=== PATIENT | female | born 1980 | race Caucasian/White ===

== ENCOUNTER 2017-10-11 20:39 | Emergency (ER) | payer MEDICAID ==
[~2017-10-11] VITALS: Ht 154.9 cm; Wt 88.1 kg
[~2017-10-11 20:39] MED LIST: AMOX500T2 PO; HYDR10SY11 PO; LEVO125T8 PO; OLME1TAB18 PO; P20 PO
[2017-10-11] MEDS ORDERED: KETOROLAC 30MG/ML VIAL IV STA (23:27)
[2017-10-11] MEDS ORDERED: SODIUM CHLORIDE 0.9% 1,000 ML IV ONE (23:27)
[2017-10-11 23:45] LABS: BASOPHILS % 0.4 % (0.0-2.0); EOSINOPHILS % 0.3 % (0.0-5.0); HEMATOCRIT. 38.4 % (36.0-48.0); HEMOGLOBIN. 13.1 g/dL (12.0-16.0); MEAN CORPUSCULAR HEMOGLOBIN 29.7 pg (28.0-32.0); MONOCYTES % 8.2 % (2.0-8.0); NEUTROPHILS % 75.1 % (40.0-76.0); PLATELET 351 x1000/uL (130-400); RED BLOOD CELL COUNT 4.41 mill/uL (4.2-5.4); RED CELL DISTRIBUTION WIDTH 12.7 % (11.6-14.6)
[2017-10-11 23:49] LABS: CHLORIDE 104 mEq/L (98-107); INR 1.1; PROTHROMBIN TIME 11.4 sec (9.4-11.6)
[2017-10-11 23:59] LABS: CLARITY URINE CLEAR (CLEAR); COLOR URINE YELLOW (YELLOW); KETONES URINE NEGATIVE (NEGATIVE); LEUKOCYTE ESTERASE URINE NEGATIVE (NEGATIVE); NITRITE URINE NEGATIVE (NEGATIVE); OCCULT BLOOD URINE NEGATIVE (NEGATIVE); PH URINE 5.5 (4.5-8.0); PROTEIN URINE NEGATIVE (NEGATIVE); SPECIFIC GRAVITY URINE 1.014 (1.005-1.030); UROBILINOGEN URINE 0.2 E.U./dL (0.2-1.0)
[2017-10-12 03:59] VITALS: BP 114/64
== END 2017-10-12 04:02 | disposition home or self-care (01) ==
LOC: ER 20:39
DX: K57.32 Diverticulitis of large intestine without perforation or abscess without bleeding (principal); I10 Essential (primary) hypertension; E03.9 Hypothyroidism, unspecified; Z98.51 Tubal ligation status
CPT/HCPCS: 36415; 74176; 80053; 81003; 81025; 85025; 85610; 96361; 96374; 99285; J1885; J7030

== ENCOUNTER 2022-02-08 19:58 | Emergency (ER) | payer MEDICAID ==
[~2022-02-08] VITALS: Ht 154.9 cm; Wt 89.0 kg
[~2022-02-08 19:58] MED LIST changes: -AMOX500T2 PO; -HYDR10SY11 PO; -P20 PO
[2022-02-08 20:16] VITALS: BP 193/133
== END 2022-02-08 21:00 | disposition left against medical advice (07) ==
LOC: ER 19:58
DX: Z53.21 Procedure and treatment not carried out due to patient leaving prior to being seen by health care provider (principal)
CPT/HCPCS: 82962

== ENCOUNTER 2022-03-22 07:14 | Emergency (ER) | payer MEDICAID ==
[~2022-03-22] VITALS: Ht 157.5 cm; Wt 88.0 kg
[2022-03-22] MEDS ORDERED: MORPHINE SULFATE 4 MG/ML CPJ (NOT FOR IM USE) IV STA (07:41)
[2022-03-22 08:14] LABS: BASOPHILS % 0.9 % (0.0-2.0); EOSINOPHILS % 2.5 % (0.0-5.0); HEMATOCRIT. 43.6 % (36.0-48.0); HEMOGLOBIN. 15.2 g/dL (12.0-16.0); LYMPHOCYTES % 25.9 % (20.0-50.0); MEAN CORPUSCULAR HEMOGLOBIN 30.4 pg (28.0-32.0); MEAN PLATELET VOLUME 7.5 fl (7.4-10.4); MONOCYTES % 4.7 % (2.0-8.0); PLATELET 377 x1000/uL (130-400); RED BLOOD CELL COUNT 5.01 mill/uL (4.2-5.4)
[2022-03-22 08:36] LABS: CHLORIDE 101 mEq/L (98-107)
[2022-03-22 12:45] VITALS: BP 209/136
== END 2022-03-22 13:07 | disposition home or self-care (01) ==
LOC: ER 07:36
DX: R07.89 Other chest pain (principal); I10 Essential (primary) hypertension; E11.9 Type 2 diabetes mellitus without complications; Z98.51 Tubal ligation status; Z86.39 Personal history of other endocrine, nutritional and metabolic disease
CPT/HCPCS: 36415; 71045; 80053; 83880; 84484; 85025; 93005; 96374; 99285; J2270

== ENCOUNTER 2023-12-16 07:04 | Emergency (ER) | payer MEDICAID ==
[~2023-12-16] VITALS: Ht 154.9 cm; Wt 88.0 kg
[2023-12-16 07:13] VITALS: BP 160/110; PULSE 74; RESP 18; TEMP 98.2; O2SAT 100
[2023-12-16] MEDS ORDERED: ACETAMINOPHEN 325MG TABLET PO STA (08:20)
[2023-12-16] MEDS ORDERED: SODIUM CHLORIDE 0.9% 1000ML BAG (SEPSIS BOLUS) IV ONE (08:30)
[2023-12-16] MEDS ORDERED: CEFTRIAXONE 1GM/50ML 50 ML IV ONE (08:30)
== END 2023-12-16 09:05 | disposition home or self-care (01) ==
LOC: ER 07:04
DX: R53.83 Other fatigue (principal); R51.9 Headache, unspecified; R11.0 Nausea; Z53.21 Procedure and treatment not carried out due to patient leaving prior to being seen by health care provider
CPT/HCPCS: 99281; 82962; J7030

== ENCOUNTER 2024-10-23 07:07 | Emergency (ER) | payer MEDICAID ==
[~2024-10-23] VITALS: Ht 154.9 cm; Wt 88.4 kg
[~2024-10-23 07:07] MED LIST changes: +AMLO10TA80 MT; +EMPA25TA PO; +GLIP5TAB22 PO; +METF-416 PO; +NIFE-33 MT
[2024-10-23 07:40] VITALS: BP 147/97; PULSE 99; RESP 16; TEMP 36.5; O2SAT 97
== END 2024-10-23 09:12 | disposition home or self-care (01) ==
LOC: ER 07:07
DX: B34.9 Viral infection, unspecified (principal); E11.9 Type 2 diabetes mellitus without complications; I10 Essential (primary) hypertension; Z79.84 Long term (current) use of oral hypoglycemic drugs; Z79.890 Hormone replacement therapy; Z79.899 Other long term (current) drug therapy; Z90.710 Acquired absence of both cervix and uterus
CPT/HCPCS: 99281

== ENCOUNTER 2025-06-20 02:33 | Emergency (ER) | payer MEDICAID ==
[~2025-06-20] VITALS: Ht 154.9 cm; Wt 88.6 kg
[2025-06-20 02:45] VITALS: TEMP 36.8; O2SAT 98
[2025-06-20 03:54] LABS: BASOPHILS % 0.6 % (0.0-2.0); EOSINOPHILS % 3.7 % (0.0-5.0); HEMATOCRIT. 43.5 % (36.0-48.0); HEMOGLOBIN. 14.7 g/dL (12.0-16.0); LYMPHOCYTES % 29.1 % (20.0-50.0); MEAN PLATELET VOLUME 7.3 fl (7.4-10.4); MONOCYTES % 6.8 % (2.0-8.0); NEUTROPHILS % 59.8 % (40.0-76.0); PLATELET 380 x1000/uL (130-400); RED BLOOD CELL COUNT 4.96 mill/uL (4.2-5.4); RED CELL DISTRIBUTION WIDTH 12.9 % (11.6-14.6)
[2025-06-20 03:58] LABS: INR 0.9
[2025-06-20 04:13] LABS: HCG SCREEN NEGATIVE
[2025-06-20 05:35] LABS: CREATININE 0.8 mg/dL (0.6-1.0); TROPONIN I HIGH SENSITIVITY < 4 ng/L (3.0-34); UREA NITROGEN BLOOD 10 mg/dL (9-23)
[2025-06-20 05:37] LABS: ASPARTATE AMINOTRANSFERASE 28 IU/L (<34); BILIRUBIN DIRECT < 0.1 mg/dL (<=3.0); BILIRUBIN TOTAL 0.4 mg/dL (0.1-1.0); PROTEIN TOTAL 6.9 g/dL (6.0-8.3)
[2025-06-20 05:38] LABS: T4 FREE 1.08 ng/dL (0.89-1.76)
[2025-06-20 06:25] LABS: CLARITY URINE CLEAR (CLEAR); COLOR URINE YELLOW (YELLOW); GLUCOSE URINE 3+ (NEGATIVE); KETONES URINE NEGATIVE (NEGATIVE); LEUKOCYTE ESTERASE URINE NEGATIVE (NEGATIVE); NITRITE URINE NEGATIVE (NEGATIVE); OCCULT BLOOD URINE NEGATIVE (NEGATIVE); PH URINE 5.0 (4.5-8.0); PROTEIN URINE NEGATIVE (NEGATIVE); SPECIFIC GRAVITY URINE 1.024 (1.005-1.030); UROBILINOGEN URINE 0.2 E.U./dL (0.2-1.0)
[2025-06-20] MEDS ORDERED: POTASSIUM CHLORIDE 20MEQ TABLET SR PO ONE (06:30)
[2025-06-20] MEDS ORDERED: METF-414 MT (06:38)
[2025-06-20] MEDS: METFORMIN HCL 500MG TABLET PO ONE (06:54)
[2025-06-20] MEDS: POTASSIUM CHLORIDE 20MEQ TABLET SR PO NR (06:54)
[2025-06-20] MEDS: MAGNESIUM OXIDE 400MG TABLET PO SCH (06:55)
[2025-06-20 06:56] VITALS: BP 149/112; PULSE 72; RESP 16; O2SAT 100
[2025-06-20 07:52] LABS: BACTERIA URINE NONE SEEN; CALCIUM OXALATE CRYSTALS URINE 1+ /lpf; RBC URINE NONE SEEN /hpf (0-2); WBC URINE NONE SEEN /hpf (0-2)
== END 2025-06-20 07:02 | disposition home or self-care (01) ==
LOC: ER 02:33
DX: R20.2 Paresthesia of skin (principal); E11.65 Type 2 diabetes mellitus with hyperglycemia; E03.9 Hypothyroidism, unspecified; E87.6 Hypokalemia; I10 Essential (primary) hypertension; R06.02 Shortness of breath; Z79.899 Other long term (current) drug therapy; Z90.710 Acquired absence of both cervix and uterus
CPT/HCPCS: 36415; 71045; 80048; 80076; 81003; 83735; 83880; 84439; 84443; 84481; 84484; 84703; 85025; 93005; 99285

== ENCOUNTER 2025-07-17 07:52 | Emergency (ER) | payer MEDICAID ==
[~2025-07-17] VITALS: Ht 162.6 cm; Wt 89.0 kg
[~2025-07-17 07:52] MED LIST changes: +METF-414 MT
[2025-07-17 08:06] VITALS: O2SAT 100
[2025-07-17 08:48] LABS: BASOPHILS % 1.2 % (0.0-2.0); EOSINOPHILS % 3.7 % (0.0-5.0); HEMATOCRIT. 42.8 % (36.0-48.0); HEMOGLOBIN. 14.5 g/dL (12.0-16.0); LYMPHOCYTES % 25.8 % (20.0-50.0); MEAN PLATELET VOLUME 7.3 fl (7.4-10.4); MONOCYTES % 7.1 % (2.0-8.0); NEUTROPHILS % 62.2 % (40.0-76.0); PLATELET 362 x1000/uL (130-400); RED BLOOD CELL COUNT 4.85 mill/uL (4.2-5.4); RED CELL DISTRIBUTION WIDTH 12.8 % (11.6-14.6)
[2025-07-17 09:10] LABS: CREATININE 0.9 mg/dL (0.6-1.0)
[2025-07-17 09:11] LABS: UREA NITROGEN BLOOD 14 mg/dL (9-23)
[2025-07-17] MEDS: KETOROLAC 15MG/ML VIAL IM ONE (09:42)
[2025-07-17] MEDS: METOCLOPRAMIDE HCL 10MG/2ML VIAL IV ONE (09:42)
[2025-07-17] MEDS: SODIUM CHLORIDE 0.9% 1,000 ML IV ONE (09:42)
[2025-07-17 09:55] LABS: TROPONIN I HIGH SENSITIVITY < 4 ng/L (3.0-34)
[2025-07-17 10:13] LABS: HCG SCREEN NEGATIVE
[2025-07-17 10:18] LABS: ASPARTATE AMINOTRANSFERASE 24 IU/L (<34); BILIRUBIN DIRECT 0.1 mg/dL (<=3.0); BILIRUBIN TOTAL 0.5 mg/dL (0.1-1.0); PROTEIN TOTAL 6.8 g/dL (6.0-8.3)
[2025-07-17 10:21] LABS: T4 FREE 0.85 ng/dL (0.89-1.76)
[2025-07-17 11:09] LABS: CLARITY URINE CLEAR (CLEAR); COLOR URINE YELLOW (YELLOW); GLUCOSE URINE 1+ (NEGATIVE); KETONES URINE TRACE (NEGATIVE); PH URINE 5.5 (4.5-8.0); PROTEIN URINE NEGATIVE (NEGATIVE); SPECIFIC GRAVITY URINE 1.016 (1.005-1.030)
[2025-07-17 11:10] LABS: LEUKOCYTE ESTERASE URINE NEGATIVE (NEGATIVE); NITRITE URINE NEGATIVE (NEGATIVE); OCCULT BLOOD URINE NEGATIVE (NEGATIVE); UROBILINOGEN URINE 0.2 E.U./dL (0.2-1.0)
[2025-07-17 11:12] LABS: MUCUS URINE TRACE /lpf (< = 2+); SQUAMOUS EPITHELIAL CELL URINE RARE /lpf (RARE/1+)
[2025-07-17 11:14] LABS: RBC URINE NONE SEEN /hpf (0-2); WBC URINE NONE SEEN /hpf (0-2)
[2025-07-17 11:15] LABS: BACTERIA URINE NONE SEEN
[2025-07-17 12:24] VITALS: BP 135/85; PULSE 63; RESP 16; TEMP 36.7; O2SAT 99
== END 2025-07-17 12:27 | disposition home or self-care (01) ==
LOC: ER 08:51
DX: G43.909 Migraine, unspecified, not intractable, without status migrainosus (principal); E11.9 Type 2 diabetes mellitus without complications; I10 Essential (primary) hypertension; Z79.899 Other long term (current) drug therapy; Z90.710 Acquired absence of both cervix and uterus
CPT/HCPCS: 80076; 80048; 81003; 84703; 84439; 84443; 85025; 84484; 36415; 71045; 70450; 93005; 96361; 96372; 96374; 99285; J1885; J2765; J7030; Z7610